=== PATIENT | male | born 2000 | race Asian ===

== ENCOUNTER 2020-12-29 07:48 | Emergency (ER) | payer MEDICAID, OTHER ==
[~2020-12-29] VITALS: Ht 170.2 cm; Wt 55.8 kg
[2020-12-29 07:53] VITALS: BP 130/76
--- NOTE | 2020-12-29 08:08 | NUR ---
DR BERRY AT BEDSIDE EVALUATING PT
[2020-12-29] MEDS ORDERED: LORazepam 2 MG/ML VIAL IM ONE (08:10)
[2020-12-29] MEDS ORDERED: KETOROLAC 30 MG/ML VIAL IM ONE (08:10)
--- NOTE | 2020-12-29 08:19 | NUR ---
PT TAKEN TO RAD VIA W/C
--- NOTE | 2020-12-29 08:39 | NUR ---
PT BACK FROM RAD
--- NOTE | 2020-12-29 09:00 | NUR ---
PT AOX4, GCS15. BREATHING EVEN UNLABORED, CHEST RISE FALL EQUAL. SKIN PWD. HERE FOR JAW DISLOCATION AFTER YAWNING THIS AM WITH SOME DIFFICULTY SPEAKING AND OBVIOUS DEFROMITY OF THE JAW. AIRWAY INTACT, NO RESPIRATORY COMPROMISE PER PATIENT. CHEST RISE FALL EQUAL.
--- NOTE | 2020-12-29 10:14 | NUR ---
PT REPORTS JAW "POPPED BACK IN PLACE." NO NEW COMPLAINTS. REPORTS NO DIFFICUTLY IN SPEAKING. REPORTS PAIN IMPROVED. DR BERRY NOTIFIED
[2020-12-29 10:16] VITALS: BP 120/81
--- NOTE | 2020-12-29 10:25 | NUR ---
Patient discharged with v/s stable. Written and verbal after care instructions given and explained. Patient verbalized understanding. Ambulatory with steady gait. All questions addressed prior to discharge. Advised to follow up with PMD.
== END 2020-12-29 10:25 | disposition home or self-care (01) ==
LOC: MED 07:48
DX: S03.02XA Dislocation of jaw, left side, initial encounter (principal); X58.XXXA Exposure to other specified factors, initial encounter; Y93.89 Activity, other specified; Y92.89 Other specified places as the place of occurrence of the external cause; Y99.8 Other external cause status
CPT/HCPCS: 70100; 70486; 96372; 99284; J1885; J2060

== ENCOUNTER 2021-06-27 13:15 | Emergency (ER) | payer OTHER ==
[~2021-06-27] VITALS: Ht 172.7 cm; Wt 57.2 kg
[2021-06-27 13:20] VITALS: BP 117/71
--- NOTE | 2021-06-27 13:22 | NUR ---
PT AMBULATED TO ER BED 7 WITH A STEADY GAIT.
--- NOTE | 2021-06-27 13:23 | NUR ---
DR. REICH WITH PT AT BEDSIDE FOR FURTHER EVALUATION.
--- NOTE | 2021-06-27 13:28 | NUR ---
21 Y/O MALE C/O LEFT SIDE JAW PAIN 7/10 X2HRS. DENIES FEVER/CHILLS. DENIES N/V/D. PMH: JAW DISLOCATION, ASTHMA NKA
[2021-06-27 13:40] VITALS: BP 117/71
--- NOTE | 2021-06-27 13:41 | NUR ---
Patient discharged with v/s stable. Written and verbal after care instructions given FOR JAW DISLOCATION and explained. Patient verbalized understanding. Ambulatory with steady gait. All questions addressed prior to discharge. Advised to follow up with PMD.
== END 2021-06-27 13:41 | disposition home or self-care (01) ==
LOC: MED 13:15
DX: R68.84 Jaw pain (principal)
CPT/HCPCS: 99281